=== PATIENT | male | born 1980 | race Caucasian/White ===

== ENCOUNTER 2017-04-28 18:36 | Emergency (ER) | payer OTHER | END 2017-04-28 20:35 | disposition other institution (70) | LOC: ED 18:36 | DX: Z02.89 Encounter for other administrative examinations (principal) ==

== ENCOUNTER 2017-04-28 18:36 | Emergency (ER) | payer SELFPAY ==
[2017-04-28 19:46] LABS: CALCIUM 8.8 mg/dL (8.5-10.1); CARBON DIOXIDE 24.8 mmol/L (21-32); CHLORIDE SERUM 106 mmol/L (98-107); CREATININE SERUM 0.8 mg/dL (0.7-1.3); GFR1 > 60 mL/min; GLUCOSE SERUM 254 mg/dL (74-106); POTASSIUM SERUM 3.8 mmol/L (3.5-5.1); SODIUM SERUM 142 mmol/L (136-145)
[2017-04-28 19:54] LABS: ALBUMIN 4.2 g/dL (3.4-5.0); ALKALINE PHOSPHATASE 90 U/L (46-116); ALT/SGPT 132 U/L (16-63); AST/SGOT 53 U/L (15-37); BILIRUBIN TOTAL 0.23 mg/dL (0.20-1.00); MAGNESIUM 2.2 mg/dL (1.8-2.4); T4(THYROXINE) 15.5 ug/dL (4.7-13.3); TOTAL PROTEIN, SERUM 9.1 g/dL (6.4-8.2)
[2017-04-28 20:03] LABS: AMPHETAMINE QUAL UR NONE DETECTED (NEG <=1000)
[2017-04-28 20:04] LABS: BASOPHIL % 0.4 % (0-2); PLATELET COUNT 221 x10^3mcL (130-400); RED CELL DISTRIBUTION WIDTH 15.9 % (11.5-14.5)
[2017-04-28 20:35] VITALS: BP 124/62
== END 2017-04-28 20:35 | disposition other institution (70) ==
LOC: ED 18:36
PROVIDERS: Emergency Medicine
DX: E05.90 Thyrotoxicosis, unspecified without thyrotoxic crisis or storm (principal); F10.229 Alcohol dependence with intoxication, unspecified; K70.9 Alcoholic liver disease, unspecified
CPT/HCPCS: 87804; G0480; J7030